=== PATIENT | female | born 2000 | race Caucasian/White ===

== ENCOUNTER → 2020-12-23 | Outpatient (CLI) | payer OTHER ==
[~2020-12-23] MED LIST: ASPIRIN CHEWABL81 MG PO; BASAGLAR K100 UNIT/1 SQ; COLACE 100MG C100 MG PO; HUMALOG MI100 UNIT/2 SQ; PRENATAL VITAM1 EAC8 PO
[2020-12-23 12:41] LABS: BUN/CREATININE RATIO 21 (0-10)
== END ==
LOC: LAB 11:43
PROVIDERS: Nurse Practitioner Family
DX: E10.9 Type 1 diabetes mellitus without complications (principal)
CPT/HCPCS: 36415; 80053; 80061; 82043; 82570; 83036; 84443